=== PATIENT | female | born 1990 | race Two or more races ===

== ENCOUNTER 2019-01-29 17:06 | Inpatient (IN) | payer MEDICAID, OTHER | END 2019-02-01 18:55 | disposition home health service (06) | LOC: ER 17:06 → TELE-WESTW 01-30 08:32 → TELE 20:47 | DX: T44.6X2A Poisoning by alpha-adrenoreceptor antagonists, intentional self-harm, initial encounter (principal); I95.9 Hypotension, unspecified; F32.9 Major depressive disorder, single episode, unspecified ==

== ENCOUNTER 2019-11-04 16:10 | Emergency (ER) | payer MEDICAID ==
[~2019-11-04] VITALS: Ht 165.1 cm; Wt 62.6 kg
[~2019-11-04 16:10] MED LIST: BREX1TAB3 PO; PRA1C PO
[2019-11-04 17:45] LABS: Urine WBC None Seen /hpf (0 - 5)
[2019-11-04 18:06] LABS: Urine Pregnacy Test Negative (Negative)
[2019-11-04 18:09] LABS: Alcohol, Urine < 3.0 mg/dL (0-5); Amphetamine Screen, Urine NEGATIVE (NEGATIVE); Barbiturate Scree,Urine NEGATIVE (NEGATIVE); Benzodiazephine Screen, Urine NEGATIVE (NEGATIVE); Cannabinoid Screen, Urine POSITIVE (NEGATIVE); Cocaine Screen, Urine NEGATIVE (NEGATIVE); Phencyclidine Screen, Urine NEGATIVE (NEGATIVE)
[2019-11-04 18:10] LABS: Urine Amorphous Crystal FEW /hpf (None Seen); Urine Bacteria NONE SEEN /hpf (None Seen); Urine Blood Negative /uL (Negative); Urine Mucus FEW (None Seen); Urine Specific Gravity 1.027 (1.001-1.035)
[2019-11-04 18:16] LABS: Opiate Scree,Urine NEGATIVE (NEGATIVE)
[2019-11-04 20:05] VITALS: BP 114/71
[2019-11-04] MEDS ORDERED: SUMAtriptan SUCCINATE 25 MG TAB PO ONE (21:15)
[2019-11-04 22:28] LABS: Basophils # (auto) 0.1 uL; Basophils % (auto) 0.6 % (0.0-2.0); Eosinophils # (auto) 0.3 uL; Eosinophils % (auto) 3.1 % (0.0-7.0); Hematocrit 38.3 % (36.0-46.0); Hemoglobin 12.8 g/dL (12.2-16.2); Lymphocytes # (auto) 3.5 uL; Lymphocytes % (auto) 32.3 % (10.0-50.0); Mean Corpuscular Hemoglobin 29.1 pg (28.0-32.0); Mean Corpuscular Hgb Conc. 33.3 g/dL (32.0-36.0); Mean Corpuscular Volume 87.5 fL (80.0-100.0); Monocytes # (auto) 0.9 uL; Monocytes % (auto) 8.2 % (0.0-12.0); Neutrophils % (auto) 55.8 % (37.0-80.0); Nucleated Red Blood Cells % 0.1 %; Platelet Count (auto) 271 10^3/uL (140-450); Red Blood Cells 4.38 10^6/uL (4.0-5.20); Red Cell Distribution Width 13.4 % (11.8-14.3); White Blood Cell 10.7 10^3/uL (4.4-10.8)
[2019-11-04 22:46] LABS: Calcium 8.7 mg/dL (8.5-10.1); Potassium 4.2 mmol/L (3.5-5.1)
[2019-11-04 22:49] LABS: BUN/Creatinine Ratio 14.7; Bilirubin, Total 0.1 mg/dL (0.2-1.0); Total Protein 8.3 g/dL (6.4-8.2)
== END 2019-11-04 21:54 | disposition home or self-care (01) ==
LOC: ER 16:10
DX: G43.109 Migraine with aura, not intractable, without status migrainosus (principal); F32.9 Major depressive disorder, single episode, unspecified
CPT/HCPCS: 36415; 70450; 80053; 80307; 81001; 81025; 85025

== ENCOUNTER 2023-09-05 15:38 | Emergency (ER) | payer MEDICAID ==
[~2023-09-05] VITALS: Ht 165.1 cm; Wt 56.4 kg
[~2023-09-05 15:38] MED LIST changes: +IBUP-1456 PO
[2023-09-05 15:55] VITALS: BP 136/75; RESP 16; O2SAT 100
[2023-09-05 16:04] VITALS: PULSE 83
[2023-09-05 17:01] LABS: Basophils # (auto) 0.1 10 ^3/uL (0-0.2); Basophils % (auto) 0.7 % (0.0-2.0); Eosinophils # (auto) 0.1 10 ^3/uL (0-0.8); Hematocrit 39.2 % (36.0-46.0); Hemoglobin 12.9 g/dL (12.2-16.2); Lymphocytes # (auto) 2.7 10 ^3/uL (0.4-5.4); Lymphocytes % (auto) 19.6 % (10.0-50.0); Mean Corpuscular Hemoglobin 28.7 pg (28.0-32.0); Mean Corpuscular Volume 86.9 fL (80.0-100.0); Monocytes # (auto) 0.9 10 ^3/uL (0-1.3); Monocytes % (auto) 6.7 % (0.0-12.0); Neutrophils # (auto) 9.9 10 ^3/uL (1.6-8.6); Red Blood Cells 4.52 10^6/uL (4.0-5.20); White Blood Cell 13.7 10^3/uL (4.4-10.8)
[2023-09-05 17:20] LABS: INR 1.03 (0.9-1.15); Partial Thromboplastin Time 29.5 SEC (24.5-34.5); Prothrombin Time 10.8 sec (9.3-11.8)
[2023-09-05 17:28] LABS: Alanine Aminotransferase 19 U/L (7-40); Albumin 4.9 g/dL (3.2-4.8); Alkaline Phosphatase 69 U/L (46-116); Anion Gap 10 (5-15); Aspartate Aminotransferase 16 U/L (13-40); BUN/Creatinine Ratio 13.4 (10.0-20.0); Bilirubin, Total 0.4 mg/dL (0.2-1.0); Blood Urea Nitrogen 9 mg/dL (9-23); Calcium 9.5 mg/dL (8.7-10.4); Carbon Dioxide 24 mmol/L (20-30); Chloride 104 mmol/L (98-107); Glucose 87 mg/dL (74-106); Magnesium 2.2 mg/dL (1.6-2.6); Potassium 4.1 mmol/L (3.5-5.1); Sodium 138 mmol/L (136-145); Total Protein 7.9 g/dL (5.7-8.2)
== END 2023-09-05 20:05 | disposition left against medical advice (07) ==
LOC: ER 15:38
DX: R51.9 Headache, unspecified (principal); R10.2 Pelvic and perineal pain; R42 Dizziness and giddiness; Z86.2 Personal history of diseases of the blood and blood-forming organs and certain disorders involving the immune mechanism; Z53.21 Procedure and treatment not carried out due to patient leaving prior to being seen by health care provider; Z79.899 Other long term (current) drug therapy
CPT/HCPCS: 36415; 80053; 83735; 83880; 84484; 84702; 85025; 85610; 85730; 93005

== ENCOUNTER 2023-09-25 15:09 | Emergency (ER) | payer MEDICAID ==
[~2023-09-25] VITALS: Ht 165.1 cm; Wt 59.0 kg
[2023-09-25] MEDS ORDERED: MAALOX PLUS or MAALOX 30 ML PO ONE (16:00)
[2023-09-25] MEDS ORDERED: LIDOCAINE VISCOUS 2% 15ML UD MT ONE (16:00)
[2023-09-25] MEDS ORDERED: OMEP-448 PO (16:21)
[2023-09-25 18:10] LABS: Urine WBC None Seen /hpf (0 - 5)
[2023-09-25 18:14] VITALS: BP 120/78; PULSE 83; RESP 18; TEMP 97.3; O2SAT 98
[2023-09-25 18:35] LABS: Urine Bacteria NONE SEEN /hpf (None Seen); Urine Blood Negative /uL (Negative); Urine Clarity Clear (Clear); Urine Color Colorless (Yellow); Urine Protein, UAD Negative (Negative); Urine Specific Gravity 1.011 (1.001-1.035); Urine Urobilinogen Normal (Negative)
== END 2023-09-25 18:26 | disposition home or self-care (01) ==
LOC: ER 15:09
DX: K29.00 Acute gastritis without bleeding (principal); K27.5 Chronic or unspecified peptic ulcer, site unspecified, with perforation; F32.9 Major depressive disorder, single episode, unspecified; Z88.8 Allergy status to other drugs, medicaments and biological substances; Z79.899 Other long term (current) drug therapy
CPT/HCPCS: 81001